=== PATIENT | male | born 1960 | race Two or more races ===

== ENCOUNTER 2020-12-21 02:33 | Emergency (ER) | payer OTHER ==
[~2020-12-21] VITALS: Ht 170.2 cm; Wt 102.1 kg
[2020-12-21] MEDS ORDERED: CIPR-262 PO (02:39)
--- NOTE | 2020-12-21 02:40 | NUR ---
[id number] from home. states has not voided x3 hrs. pt with osman. pt is aa/o x3, no sob noted, denies any pain, hook to monitor and spox will cont to monitor
--- NOTE | 2020-12-21 02:50 | NUR ---
osman catheter change yellow urine saw draining via gravity
[2020-12-21 03:18] LABS: BILIRUBIN,URINE NEGATIVE (NEGATIVE); COLOR,URINE YELLOW (YELLOW); LEUKOCYTE ESTERASE ,URINE MODERATE (NEGATIVE); NITRITE, URINE NEGATIVE (NEGATIVE); PH,URINE 8.5 (5.0-8.0); PROTEIN,URINE 100 mg/dl (NEGATIVE); UGLUCOSE NEGATIVE (NEGATIVE); UROBILINOGEN,URINE >=8.0 EU/dL (0.2)
--- NOTE | 2020-12-21 03:29 | NUR ---
[facility] CALLED FOR TRANSPORT. ETA 1 HR
[2020-12-21] MEDS ORDERED: CIPROFLOXACIN HCL 500 MG TABLET ONE (03:39)
[2020-12-21] MEDS: CIPROFLOXACIN HCL 500 MG TABLET PO ONE (03:43)
--- NOTE | 2020-12-21 04:44 | NUR ---
Patient discharged to home in stable condition. Written and verbal after care instructions given. Patient verbalizes understanding of instruction.Pt was discharge via [facility] ambulance, safely transfer from bed to [facility], accompanied by family member
[2020-12-21 04:47] VITALS: BP 126/86
== END 2020-12-21 04:47 | disposition home or self-care (01) ==
LOC: ER 02:35
DX: N39.0 Urinary tract infection, site not specified (principal); R53.1 Weakness; Z79.899 Other long term (current) drug therapy
CPT/HCPCS: 87086-TC; 87186-TC